=== PATIENT | female | born 1965 | race Caucasian/White ===

== ENCOUNTER 2021-11-11 05:33 | Outpatient (CLI) | payer MEDICARE ==
[~2021-11-11] VITALS: Ht 157.4 cm; Wt 165.0 kg
[2021-11-11] MEDS ORDERED: BUPR300T98 PO (13:38)
[2021-11-11] MEDS ORDERED: CETI10CA PO (13:38)
[2021-11-11] MEDS ORDERED: FURO40TA4 PO (13:38)
[2021-11-11] MEDS ORDERED: DAPA10TA PO (13:38)
[2021-11-11] MEDS ORDERED: RT-ALBUINH INH (13:38)
[2021-11-11] MEDS ORDERED: SITA100T12 PO (13:38)
[2021-11-11] MEDS ORDERED: METF-399 PO (13:38)
[2021-11-11] MEDS ORDERED: LEVO150C4 PO (13:38)
[2021-11-11] MEDS ORDERED: LISI5TAB20 PO (13:38)
[2021-11-11] MEDS ORDERED: GLIM4TAB5 PO (13:38)
[2021-11-11] MEDS ORDERED: ATOR80TA76 PO (13:38)
[2021-11-11] MEDS ORDERED: FLUT1BLS3 IH (13:51)
[2021-11-11] MEDS ORDERED: CITA20TA9 PO (13:51)
== END 2021-11-11 14:06 | disposition home or self-care (01) ==
LOC: PREOP 05:33
PROVIDERS: ATTEND Surgery
DX: Z01.818 Encounter for other preprocedural examination (principal)

== ENCOUNTER 2021-11-18 07:00 | Day surgery (SDC) | payer MEDICARE ==
[~2021-11-18] VITALS: Ht 157.4 cm; Wt 165.0 kg
[2021-11-18] VITALS (14 sets, daily range): BP systolic 101–156; BP diastolic 57–92
[~2021-11-18 07:00] MED LIST: ATOR80TA76 PO; BUPR300T98 PO; CETI10CA PO; CITA20TA9 PO; DAPA10TA PO; FLUT1BLS3 IH; FURO40TA4 PO; GLIM4TAB5 PO; LEVO150C4 PO; LISI5TAB20 PO; METF-399 PO; RT-ALBUINH INH; SITA100T12 PO
--- OUTSIDE RECORDS SUMMARY | 2021-11-18 07:02 | XMS REPORT | Clinical Summary ---
Author Author [facility] Organization [facility] Address Unknown Phone Unavailable Care Team Providers Care Supply Crib Attendant Name Role Phone Lore Corley RN Unavailable Unavailable Milena Loyola RN Unavailable Unavailable Tosha Acosta MD Unavailable Nixon Lozano MD Unavailable Marianna Mitchell Unavailable Unavailable Gabriel Isbell MD PCP Source Comments Some departments are not documenting in the electronic medical record. If you d o not see the information that you expected, contact Release of Information in [facility] Information Management department at [phone] for further assistan ce in locating additional records.[facility] Allergies Comments Active Allergy Reactions Severity Noted Date changed colors, passed out, and almost , per patient Aspirin SYNCOPE High 04/13/2011 Sulfamethoxazole-Trimetho ANAPHYLAXIS High 02/06/2016 prim changed colors, passed out, and almost , per patient Propoxyphene SYNCOPE High 04/13/2011 changed colors, passed out, and almost , per patient Meperidine SYNCOPE High 04/13/2011 changed colors, passed out, and almost , per patient Tolerates Keflex Penicillins SYNCOPE High 04/13/2011 changed colors, passed out, and almost , per patient Diazepam SYNCOPE High 09/20/2013 Medications End Date Status Medication Sig Dispensed Refills Start Date Active guaiFENesin LA (MUCINEX) Take 600 mg 0 600 mg tablet by mouth twice daily as needed. Active PROAIR HFA 90 INHALE TWO 9 g 0 08/09/ mcg/actuation inhaler PUFFS BY 8 MOUTH EVERY 6 HOURS NEEDED FOR WHEEZING Active buPROPion XL (WELLBUTRIN TAKE ONE 90 tablet 3 1 XL) 300 mg tablet TABLET BY 8 MOUTH ONCE DAILY IN THE MORNING Active citalopram (CELEXA) 20 mg TAKE ONE 90 tablet 3 tablet TABLET BY 8 MOUTH ONCE DAILY Additional Information Patient taking differently: 20 mg Oral AT BEDTIME DAILY, Reported on 09/21/2020 Active metFORMIN (GLUCOPHAGE) TAKE ONE 180 tablet 3 500 mg tablet TABLET BY 8 MOUTH TWICE DAILY WITH MEALS Additional Information Patient taking differently: 1,000 mg Oral TWICE DAILY WITH MEALS, Reported on 09/21/2020 Active furosemide (LASIX) 40 mg TAKE 1 TABLET 30 tablet 0 tablet BY MOUTH ONCE 9 DAILY Additional Information Patient taking differently: 40 mg Oral EVERY MORNING, Reported on 09/21/2020 Active nicotine(+) (NICOTROL) 10 Inhale one 168 each 3 mg inhaler puff by mouth 0 into the lungs as Needed. Puff by mouth as needed. May use 6-16 cartridges per day as needed for up to 6 months. Active cetirizine (ZYRTEC) 10 mg Take one 90 tablet 3 tabletIndications: tablet by 0 Mucopurulent chronic mouth every bronchitis (HCC), morning. Seasonal allergies Active SITagliptin (JANUVIA) 100 Take 100 mg 0 mg tab tablet by mouth daily. Active glimepiride (AMARYL) 4 mg Take 4 mg by 0 tablet mouth daily. Active atorvastatin (LIPITOR) 80 Take 1 tablet 0 mg tablet by mouth 0 every morning. Active levothyroxine (SYNTHROID) Take 1 tablet 0 137 mcg tablet by mouth 0 every morning. Active VICTOZA 2-LEROY 0.6 mg/0.1 Inject 1.2 mg 0 09/16 mL (18 mg/3 mL) injection under the 0 pen skin daily. Increase to 1.2 mg after 1 week at 0.6mg daily Active acetaminophen SR (TYLENOL Take one 30 tablet 0 8 HOUR) 650 mg tablet tablet by 0 mouth every 6 hours as needed for Pain. Active ibuprofen (MOTRIN) 600 mg Take one 30 tablet 0 tablet tablet by 0 mouth every 6 hours as needed for Pain. Take with food. Active amLODIPine (NORVASC) 5 mg Take 5 mg by 0 tablet mouth daily. Active oxyCODONE (ROXICODONE) 5 Take one-half 30 tablet 0 mg tablet tablet to one 1 tablet by mouth every 4 hours as needed Active nicotine (NICODERM CQ Apply one 28 patch 0 12/07 STEP 3) 7 mg/day patch to top 1 patchIndications: smoking of skin as cessation directed every 24 hours. Rotate patch location. Indications: stop smoking Active nicotine (NICODERM CQ Apply one 28 patch 0 12/07 STEP 2) 14 mg/day patch to top 1 patchIndications: smoking of skin as cessation directed every 24 hours. Rotate patch location. Indications: stop smoking Active nicotine (NICODERM CQ Apply one 28 patch 0 12/07 STEP 1) 21 mg/day patch to top 1 patchIndications: smoking of skin as cessation directed every 24 hours. Rotate patch location. Indications: stop smoking Active albuterol-ipratropium Inhale 3 mL 180 mL 11/06 (DUONEB) 0.5 mg-3 mg(2.5 solution by 2 mg base)/3 mL nebulizer nebulizer as solutionIndications: directed four Asthma-COPD overlap times daily. syndrome (HCC) Active gyqpeqogvv-vjsntdrv-viwoz Inhale two 3 each 3 terol (BREZTRI puffs by 2 AEROSPHERE) 160-9-4.8 mouth into mcg/actuation the lungs inhalerIndications: twice daily. Asthma-COPD overlap syndrome (HCC) 11/17/2021 Discontinued (Ineffective Th erapy) vkfqtdbefka-xrsvrjoae-yjr Inhale one 60 each 11 anter (TRELEGY ELLIPTA) puff by mouth 1 200-62.5-25 mcg into the inhalerIndications: lungs daily. Asthma-COPD overlap syndrome (HCC) Active Problems Problem Noted Date S/P hysterectomy 12/17/2020 Family history of premature CAD 11/09/2020 Tobacco abuse 11/09/2020 Last Assessment & Plan: Formatting of this note might be differ ent from the original. - continues to cut back smoking, now do wn to 5 cigarettes/day - not currently using NRT resources - encouraged to substitute her nicotrol inhaler for the 5 cigarettes/day to achieve complete cessation Type 2 diabetes mellitus 11/09/2020 Mixed hyperlipidemia 11/09/2020 Obesity due to excess calories 11/09/2020 Endometrial cancer 10/17/2020 Asthma-COPD overlap syndrome 08/18/2020 Overview: Formatting of this note might be differ ent from the original. PFT (07/2020) FVC 1.40L (45% pred) FEV1 1.07L (44% pred) FEV1/FVC 77 RV 2.03L (115% pred) DLCO 107% pred Inhaler Regimen Trelegy 200/62.5/25 Albuterol DuoNeb Vaccinations Influenza - annually Pneumococcal - 2016 Prevnar - due at 66yo Oxygen N/A Pulm Rehab Not yet referred Smoking 30 pack-years Quit 08/2020 LDCT screening Referred 05/17/21 L ast Assessment & Plan: Formatting of this note might be differ ent from the original. - recently switch to Trelegy per PCP of magno, which we will continue - stop Symbicort - Rx for Trelegy high dose provided - continue Albuterol PRN - reviewed benefits for low-dose lung c ancer screening, referral placed GLORIA (obstructive sleep apnea) 08/18/2020 Last Assessment & Plan: Formatting of this note might be differ ent from the original. - improved tolerance on set pressure of 17 cmH20, though now feels her machine has gone back to auto-titrating and waking her in the night. - will verify pressure settings with DM E and ensure she is on set pressure of 17 Seasonal allergies 08/18/2020 Overview: Formatting of this note might be differ ent from the original. Zyrtec L ast Assessment & Plan: Formatting of this note might be differ ent from the original. - denies any symptoms during winter - plan to resume antihistamine therapy in spring04/14/2011 Ribs, multiple fractures 04/13/2011 Encounters Care Team Description Date Type Specialty Eva Harrison APRN-NP Arrived 11/17/2021 Hospital Radiology Encounter Swetha Mireles APRN-NP Asthma-COPD overlap syndrome (HCC) (Prim nina Dx); GLORIA (obstructive sleep apnea) 11/17/2021 Office Visit Pulmonology Swetha Mireles APRN-NP Arrived 11/17/2021 Hospital Encounter 11/17/2021 Travel Swetha Mireles MASTER MACHINIST-Eva Rowland APRN-NATALIIA Encounter for screening for lung cancer (Primary Dx) 11/15/2021 Scheduled Cardiothoracic Surg [place] Telephone Eva Campos PA-C Moran, Allysa M, PA-C Endometrial cancer (HCC) (Primary Dx); Lower extremity edema; Tobacco use 09/09/2021 Office Visit Oncology 09/09/2021 Travel from Last 3 Months Immunizations Name Administration Dates Next Due Pneumococcal Vaccine 05/04/2016 (23-Abbie Adult) Tdap Vaccine 04/06/2016 Surgical History Surgery Date Site/Laterality Comments HX SECTION 11/06/1996 - 11/05/1997 URETER SURGERY 11/06/1974 - 11/05/1975 MOUTH SURGERY teeth removed HYSTEROSCOPY 09/23/2020 Cervix/N/A HYSTEROSCOPY DI LATION AND CURETTAGE performed by Edis Santamaria MD at [facility] OR Medical devices from this surgery are i n the Implants section. INTRAUTERINE DEVICE 09/23/2020 Cervix/N/A INSERTION INTRAUTERINE DEVICE performed by INSERTION Edis Santamaria MD at [facility] OR Medical devices from this surgery are i n the Implants section. HX HYSTERECTOMY HYSTERECTOMY 12/17/2020 Abdomen/Bilater ROBOT ASSISTED LAPAROSCOPIC TOTAL HYSTERECTOMY - al BILATERAL REMOVAL OF TUBES AND OVARIES, MINILAPAROTOMY performed by Keesha Christianson MD at [facility] OR COLONOSCOPY 03/25/2021 N/A COLONOSCOPY SETELA GNOSTIC WITH SPECIMEN COLLECTION BY BRUSHING/ WASHING - FLEXIBLE performed by Sierra Mayberry DO at [facility] COLONOSCOPY 03/25/2021 COLONOSCOPY WITH SN ARE REMOVAL TUMOR/ POLYP/ OTHER LESION performed by Sierra Mayberry DO at [facility] Medical History Medical History Date Comments Sleep apnea Obesity Muscle spasm Psychiatric illness Hypothyroid Anxiety disorder COPD (chronic obstructive pulmonary disease) (HCC) Depression Hypertension Hyperlipidemia Arthritis DM (diabetes mellitus) (HCC) Cancer of uterus (HCC) Colorectal cancer (HCC) Endometrial ca (HCC) GERD (gastroesophageal reflux disease) Eczema Family History Medical History Relation Name Comments Cancer Daughter Depression Daughter Mental Illness Daughter Diabetes Father Hearing Loss Father Heart Disease Father High Cholesterol Father Hypertension Father Thyroid Disease Half Sister COPD Maternal Grandfather Heart Attack Maternal Grandfather Heart Disease Maternal Grandfather Cancer Maternal Grandmother Depression Maternal Grandmother Cancer Mother Depression Mother Heart Attack Mother Heart Disease Mother High Cholesterol Mother Hypertension Mother Stroke Mother Vision Loss Mother Brain Tumor Paternal Grandmother Cancer-Breast Paternal Grandmother Cancer-Colon Neg Hx Cancer-Ovarian Neg Hx Cancer-Uterine Neg Hx Cervical Cancer Neg Hx DVT Neg Hx Pulmonary Embolism Neg Hx Relation Name Status Comments Daughter Father Half Sister Maternal Grandfather Maternal Grandmother Mother Paternal Grandmother Social History Date Tobacco Use Types Packs/Day Years Used Current Every Day Smoker Cigarettes 1 37 Smokeless Tobacco: Never Used Tobacco Cessation: Ready to Quit: Yes; C ounseling Given: Yes Comments: reports she starated smoking at age 19, average 1 pack a day. Has cut down recently. Comments Alcohol Use Standard Drinks/Week No 0 (1 standard drink = 0.6 o z pure alcohol) Sex Assigned at Date Recorded Female 09/15/2020 1:29 PM WRECKING MECHANIC Date Recorded COVID-19 Exposure Response 11/17/2021 9:31 AM WRECKING MECHANIC In the last month, have you been in contact with No / Unsure someone who was confirmed or suspected to have Coronavirus / COVID-19? Obstetrics History Term Pre Abrt (TAB) (SAB) (Ect) Mult Lvng Comments Grav Para 1 1 1 2 Date GA Total Labor Labor/2nd/3rd Weight Sex Delivery Anes PTL Sandra A1 A5 Name Clin Outcome SAB Last Filed Vital Signs Reading Time Taken Comments Vital Sign 111/38 11/17/2021 10:53 AM WRECKING MECHANIC Blood Pressure 83 11/17/2021 10:53 AM WRECKING MECHANIC Pulse 36.8 C (98.2 F) 09/09/2021 10:09 AM CDT Temperature 18 11/17/2021 10:53 AM WRECKING MECHANIC Respiratory Rate 92% 11/17/2021 10:53 AM WRECKING MECHANIC Oxygen Saturation - - Inhaled Oxygen Concentration 160.1 kg (353 lb) 11/17/2021 10:53 AM WRECKING MECHANIC Weight 157.5 cm (5' 2") 11/17/2021 10:53 AM WRECKING MECHANIC Height 64.56 11/17/2021 10:53 AM WRECKING MECHANIC Body Mass Index Plan of Treatment Health Maintenance Due Date Last Done Comments MEDICARE ANNUAL WELLNESS 1966 VISIT MICROALBUMIN 1966 HIV SCREENING 1981 DILATED EYE EXAM 1984 FOOT EXAM 1984 HEPATITIS C SCREENING 1984 PHYSICAL (COMPREHENSIVE) 1984 EXAM CERVICAL CANCER SCREENING 1987 SHINGLES RECOMBINANT 2016 VACCINE (1 of 2) BREAST CANCER SCREENING 01/19/2017 01/20/2016 HBA1C 06/07/2017 12/08/2016, 08/10/2016, 05/04/2016, Additional history exists INFLUENZA VACCINE 06/06/2021 DTAP/TDAP VACCINES (2 - 04/06/2026 04/06/2016 Td or Tdap) COLORECTAL CANCER 03/25/2031 03/25/2021, SCREENING 03/25/2021, 03/25/2021 LUNG CANCER SCREENING Completed 11/17/2021 Goals Goal Patient Associated Recent Progress Patient-Stat Aut hor Goal Type Problems ed? Recover from illness Hospital Yes Michael Perez RN Implants Device Identifier Shelf Expiration Date Model / Serial / L ot Implanted Type Area Manufactur er 02/24/2024 [id number] / [id number] / Dank N/A: Cervix Implanted: Qty: 1 on 09/23/2020 by Edis Santamaria MD at [facility] Procedures Comments Procedure Name Priority Date/Time Associated Diag nosis CT LUNG SCREENING Routine 11/17/2021 Personal his tory of 1:28 PM WRECKING MECHANIC tobacco use PFT COMPLETE PULM Routine 11/17/2021 Asthma-COPD overlap FUNCTION 9:59 AM WRECKING MECHANIC syndrome (HCC) from Last 3 Months Results * CT LUNG SCREENING (11/17/2021 1:28 PM WRECKING MECHANIC) Modality Anatomical Region Laterality Computed Tomography Chest Specimen Impressions [facility] RESULTS - 11/17/2021 2:17 PM WRECKING MECHANIC 1. Several tiny pulmonary nodules may be scars or granulomas. Attention on continued annual low-dose CT lung screening is recommended. 2. At least mild coronary artery calci fication. NAVIGATOR NOTES (check all that apply) [ ]There are no findings which require close attention. Continue yearly screening according to protocol. (Lung-Rads 1) [ ] There are non-urgent findings which are likely to be clinically significant, as described in impression number(s) . (Lung-Rads S) [ ] There are urgent findings which require attention as described in impression number(s) . (Lung-Rads S) [x] Lung nodule(s) present with follow-up low dose ct recommendations as described in impression number(s) 1. (Lung-Rads 2) [ ] Lung nodule(s) or mass(es) with diagnostic recommendations as described in impression number(s) . (Lung-Rads ) Finalized by Darren Dunahm M.D. on 11/17/2021 2:17 PM. Dictated by Darren Dunham M.D. on 11/17/2021 2:05 PM. Narrative [facility] RESULTS - 11/17/2021 2:17 PM WRECKING MECHANIC Low-dose CT chest without contrast Clinical History: Personal history of tobacco use. Initial screening. Technique: Multiple contiguous axial CT images were obtained through the chest without contrast according to the low-dose CT protocol. Note: The low dose non-contrast CT technique used in this study allows for adequate evaluation of the lungs, with significant reduction in radiation dose to the patient versus a standard CT chest. Evaluation of mediastinal, hilar, and other soft tissue and bony structures of the chest is limited. Comparison: April 18, 2011 Findings: There is no axillary, mediastinal or hilar lymphadenopathy. Mildly prominent bilateral axillary lymph nodes are noted, likely reactive. The heart size is normal without pericardial effusion. There is at least mild coronary artery calcification. 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 Fine detail in both lungs is limited due to patient body habitus. Scattered areas of scarring are noted. A tiny calcified granulomas again seen in the right upper lobe on series 3, image 123. There are several tiny pulmonary nodules measuring up to 0.3 cm which are not definitely seen on the prior study which could be due to the presence of atelectasis, or could be due to exam technique. These are seen in the left lung on series 3, image 71, as well as in the right lung on image 123 and 157, for example. There is no pleural effusion. Multiple old healed bilateral rib fracture deformities are noted. There is mild diffuse hepatic steatosis. Procedure Note Darren Dunham MD - 11/17/2021 Low-dose CT chest without contrast Clinical History: Personal history of tobacco use. Initial screening. Technique: Multiple contiguous axial CT images were obtained through the chest without contrast according to the low-dose CT protocol. Note: The low dose non-contrast CT technique used in this study allows for adequate evaluation of the lungs, with significant reduction in radiation dose to the patient versus a standard CT chest. Evaluation of mediastinal, hilar, and other soft tissue and bony structures of the chest is limited. Comparison: April 18, 2011 Findings: There is no axillary, mediastinal or hilar lymphadenopathy. Mildly prominent bilateral axillary lymph nodes are noted, likely reactive. The heart size is normal without pericardial effusion. There is at least mild coronary artery calcification. 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 Fine detail in both lungs is limited due to patient body habitus. Scattered areas of scarring are noted. A tiny calcified granulomas again seen in the right upper lobe on series 3, image 123. There are several tiny pulmonary nodules measuring up to 0.3 cm which are not definitely seen on the prior study which could be due to the presence of atelectasis, or could be due to exam technique. These are seen in the left lung on series 3, image 71, as well as in the right lung on image 123 and 157, for example. There is no pleural effusion. Multiple old healed bilateral rib fracture deformities are noted. There is mild diffuse hepatic steatosis. IMPRESSION 1. Several tiny pulmonary nodules may b e scars or granulomas. Attention on continued annual low-dose CT lung screening is recommended. 2. At least mild coronary artery calcif ication. NAVIGATOR NOTES (check all that apply) [ ]There are no findings which require close attention. Continue yearly screening according to protocol. (Lung-Rads 1) [ ] There are non-urgent findings which are likely to be clinically significant, as described in impression number(s) . (Lung-Rads S) [ ] There are urgent findings which require attention as described in impression number(s) . (Lung-Rads S) [x] Lung nodule(s) present with follow-up low dose ct recommendations as described in impression number(s) 1. (Lung-Rads 2) [ ] Lung nodule(s) or mass(es) with diagnostic recommendations as described in impression number(s) . (Lung-Rads ) Finalized by Darren Dunham M.D. on 11/17/2021 2:17 PM. Dictated by Darren Dunham M.D. on 11/17/2021 2:05 PM. Performing Organization Address City/State/ZIP Code P andrzej Number [facility] RESULTS * PFT COMPLETE PULM FUNCTION (11/17/2021 9:59 AM WRECKING MECHANIC) FVC-Pre 1.31 L [facility] PFT MAIN FVC-%Pred-pre 43 % [facility] MAIN FVC-Post 1.55 L [facility] MAIN FVC-%Pred-Post 51 % [facility] FEV1-Pre 0.97 L [facility] MAIN FEV1-%Pred-Pre 40 % [facility] MA[facility] FEV1-Post 1.26 L [facility] MA[facility] FEV1-%Pred-Post 52 % [facility] FEV1/FVC-Pre 74 % [facility] MAIN [id number] 69 % [facility] [id number] 0.73 L/sec [facility] MAIN [id number]-%Pred-P 30 % [facility] MAIN re [id number] 1.71 L/sec [facility] MAIN MUT2371-%Pred-P 72 % [facility] MAIN ost PEF-Post 178.6 L/min [facility] MAIN RVPleth-Pre 1.86 L [facility] PFT MAIN RVPleth-%Pred-P 105 % [facility]FT MAIN re TLCPleth-Pre 3.66 L [facility] PFT MAIN TLCPleth-%Pred- 78 % [facility]FT MAIN Pre DLCOunc-Pre 21.38 ml/min/mmHg [facility] PFT MAIN DLCOunc-%Pred-P 101 % [facility] PFT MAIN re DLCOunc-#SD 0.059 ml/min/mmHg [facility]FT MAIN DLVA-Pred 4.64 ml/min/mmHg/L [facility] PFT MAIN DLVA-Pre 6.86 ml/min/mmHg/L [facility] MAIN DLVA-%Pred-Pre 147 % [facility]FT MAIN DLVA-SD 0.80 ml/min/mmHg/L [facility]FT MAIN DLVA-LLN 3.04 ml/min/mmHg/L [facility]FT MAIN DLVA-ULN 6.24 ml/min/mmHg/L [facility] MAIN DLVA-#SD 2.774 ml/min/mmHg/L [facility]FT MAIN [id number] 52 % [facility] MAIN Specimen Narrative Performing Organization Address City/State/ZIP Code P andrzej Number [facility] PFT MAIN [address] [place], [place] [address] from Last 3 Months Insurance Type Payer Benefit Subscriber ID Effective Phone Address Plan / Dates Group ALISHA OKEEFE [id number] 2019-P [phone] [address] [place] [address] Medicaid [employer] [place] [employer] [id number] 2019 [address] [place] [id number] [id number] Advance Directives Patient Vehicle Assembly Inspector Explanation Type Date Recorded Advance 09/20/2013 7:24 AM Directive/DPOA Advance Directives 04/14/2011 12:00 AM and Living Will Date Inactivated Comments Code Status Date Activated 12/18/2020 12:23 PM Full Code 12/17/2020 8:22 PM Provider has discussed Code Status No, discussion no t w/Patient or Family? necessary based on Dx 04/19/2011 2:16 PM Full Code 04/13/2011 4:06 PM Provider has discussed Code Status Yes w/Patient or Family? Care Teams Start Date End Date Supply Crib Attendant Relationship Specialty 01/06/21 Gabriel Isbell MD PCP - General Family [address] [place], [place] [phone] 04/13/11 Lore Corley, STEVENSON Emergency Medicine 09/20/13 Milena Loyola RN 10/28/15 Tosha Acosta MD Family [address] [facility] [address] [place] [address] 03/16/16 Nixon Lozano MD Family [address] [place] [address] [id number] 06/08/16 Marianna Mitchell Psychologist
--- OUTSIDE RECORDS SUMMARY | 2021-11-18 07:03 | XMS REPORT | Clinical Summary ---
Author Author [facility] Organization [facility] Address Unknown Phone Unavailable Care Team Providers Care Food Services Coordinator Name Role Phone PCP Unavailable Source Comments [facility] (Labor and Delivery) documents do not appear in the [facility] Allergies Not on File Medications Please verify current medications with patient. Not on file Active Problems Not on file Social History Date Tobacco Use Types Packs/Day Years Used Never Assessed Sex Assigned at Date Recorded Not on file Last Filed Vital Signs Not on file Plan of Treatment Health Maintenance Due Date Last Done Comments CT Colonography 1966 Cervical Cancer Screening 1966 Colonoscopy 1966 Colorectal Cancer 1966 Screening DNA-based stool test 1966 (Cologuard) HPV/Cotest 1966 Mammogram 1966 Pap Smear 1966 Sigmoidoscopy 1966 gFOBT or FIT 1966 COVID-19 Vaccine (1) 1971 Influenza Vaccine (#1) 2021 Pneumococcal Vaccine: 65+ 2031 Years (1 of 1 - PPSV23) HPV Vaccine Aged Out No longer eligible based on patient's age to complete this topic Hepatitis A Vaccine Aged Out No longer eligible based on patient's age to complete this topic Hepatitis B Vaccine Aged Out No longer eligible based on patient's age to complete this topic Hib Vaccine Aged Out No longer eligible based on patient's age to complete this topic IPV Vaccine Aged Out No longer eligible based on patient's age to complete this topic Meningococcal Vaccine Aged Out No longer eligib le based on patient's age to (MCV4) complete this topic Pneumococcal Vaccine: Aged Out No longer eligib le based on patient's age to Pediatrics (0 to 5 Years) complete this topic and At-Risk Patients (6 to 64 Years) Rotavirus Vaccine Aged Out No longer eligible based on patient's age to complete this topic Results Not on filefrom Last 3 Months
--- OUTSIDE RECORDS SUMMARY | 2021-11-18 07:03 | XMS REPORT | Encounter Summary ---
Author Author [facility] Organization [facility] Address Unknown Phone Unavailable Care Team Providers Care Transportation Maintenance Specialist Name Role Phone Lore Corley RN Unavailable Unavailable Milena Loyola RN Unavailable Unavailable Tosha Acosta MD Unavailable Nixon Lozano MD Unavailable Marianna Mitchell Unavailable Unavailable Gabriel Isbell MD PCP Reason for Visit * Reason Comments New Patient * Consultation (Routine) - New Request Diagnoses / Procedures Referred By [facility] Diagnoses Tobacco abuse Swetha Mireles APRN-NP [address] Ortho/Med Pavilion Lvl [address] [place] [address] Cc - Ww Cl Exm[facility] R[facility] [place] [place] Oncology Referral ID Status Reason Start Date Expiration Visits Vi sits Date Requested Authorized [id number] New Request Specialty Services 05/17/2021 05/17/2022 1 1 Required Encounter Details Care Team Description Date Type Department Swetha Mireles APRN-NP [address] Ortho/[facility] Pavilion Lvl [address] [place] [phone] Eva Harrison APRN-NP [address] [address] Encounter for screening for lung cancer (Primary Dx) 11/15/2021 Scheduled Cardiothoracic Surg shameka: Telephone Eyad Jensen [facility] [address] [address] Level [address] [place] [address] Social History Date Tobacco Use Types Packs/Day Years Used Current Every Day Smoker Cigarettes 1 37 Smokeless Tobacco: Never Used Comments: reports she starated smoking a t age 19, average 1 pack a day. Has cut down recently. Comments Alcohol Use Standard Drinks/Week No 0 (1 standard drink = 0.6 o z pure alcohol) Sex Assigned at Date Recorded Female 09/15/2020 1:29 PM RETAIL SALES CLERK documented as of this encounter Functional Status Date of Assessment Functional Status Response 01/12/2021 Does the patient have a hearing impairment: No 01/12/2021 Does the patient have a visual impairment: Yes 01/12/2021 Does the patient have impaired ambulation: No 01/12/2021 Does the patient have an activity of daily living No (ADL) impairment: 01/12/2021 Does the patient have an instrumental activity of No daily living (IADL) impairment: Date of Assessment Cognitive Status Response 01/12/2021 Does the patient have a cognitive impairment: No documented as of this encounter Progress Notes * Eva Harrison APRN-COURT WORKER - 11/15/2021 2:30 PM RETAIL SALES CLERK Telephone Visit Counseling and Shared Decision Making Documentation for Screening for Lung Cance r with Low Dose Computed Tomography Obtained patient's verbal consent to treat them and their agreement to [facility] policy and NPP via this telehealth visit during the Coronavirus Public [facility] Emergency. Beneficiary eligibility criteria were verified to include: Age 55-77 years old-56 y.o. Symptoms- none Social History Tobacco Use Smoking Status Current Every Day Smoker Packs/day: 1.00 Years: 37.00 Pack years: 37.00 Types: Cigarettes Smokeless Tobacco Never Used Tobacco Comment reports she starated smoking at age 19, average 1 pack a day. Has cut down rec ently. NEW Prior CT chest 04/18/11 A discussion of the LDCT was provided to include: Benefits and harm of screening Follow-up diagnostic testing Over-diagnosis False positive rate Total radiation exposure Importance of adherence to annual lung cancer screening Smoking cessation or continued abstinence The patient meets criteria for a LDCT, questions were answered, and patient has agreed to proceed. The patient was furnished with a smoking cessation guide, as appropriate. Confirmed CT and results appointments. Medical History: Diagnosis Date Anxiety disorder Arthritis Cancer of uterus (HCC) Colorectal cancer (HCC) COPD (chronic obstructive pulmonary disease) (HCC) Depression DM (diabetes mellitus) (HCC) Eczema Endometrial ca (HCC) GERD (gastroesophageal reflux disease) Hyperlipidemia Hypertension Hypothyroid Muscle spasm Obesity Psychiatric illness Sleep apnea Plan: Scan scheduled: 11/17 Result apt scheduled: 11/24 PCP- Gabriel Flores Referring Provider (if not PCP)- YOSHI Ochoa Thoracic Surgery Lung Cancer Screening Program 10 minutes time spent on this encounter including review of chart, review of elena t results, communication and education, and documentation. [facility] documented in this encounter Plan of Treatment Order Schedule Name Type Priority Associated Diag noses Ordered: 05/17/2021 AMB REFERRAL FOR LUNG Outpatient Routine Tobacco abuse CANCER SCREENING Referral documented as of this encounter Goals Goal Patient Associated Recent Progress Patient-Stat Aut hor Goal Type Problems ed? Recover from illness Hospital Yes Michael Perez RN documented as of this encounter Visit Diagnoses Diagnosis Encounter for screening for lung cancer - Primary documented in this encounter Additional Health Concerns Noted Time Assessment 10/28/2015 2:00 PM RETAIL SALES CLERK PHQ-9 Depression Total Score: 27 09/09/2021 10:10 AM CDT A fall risk assessment has been complet ed for the patient 05/17/2021 7:42 AM CDT PHQ-2 Depression Total Score: 0 documented as of this encounter Care Teams Start Date End Date Transportation Maintenance Specialist Relationship Specialty 01/06/21 Gabriel Isbell MD PCP - General [facility] [address] [place] [address] 04/13/11 Lore Corley RN Emergency Medicine 09/20/13 Milena Loyola RN 10/28/15 Tosha Acosta MD Family 1999 [facility] Ortho/Med Pavilion Lvl 1 [place] [address] 03/16/16 Nixon Lozano MD Family [address] [place] [address] 06/08/16 Marianna Mitchell Psychologist documented as of this encounter
--- OUTSIDE RECORDS SUMMARY | 2021-11-18 07:03 | XMS REPORT | Encounter Summary ---
Author Author [facility] Organization [facility] Address Unknown Phone Unavailable Care Team Providers Care Move Coordinator Name Role Phone Lore Corley RN Unavailable Unavailable Milena Loyola RN Unavailable Unavailable Tosha Acosta MD Unavailable Nixon Lozano MD Unavailable Marianna Mitchell Unavailable Unavailable Gabriel Isbell MD PCP Encounter Details Care Team Description Date Type Department 11/17/2021 Travel Social History Date Tobacco Use Types Packs/Day Years Used Current Every Day Smoker Cigarettes 1 37 Smokeless Tobacco: Never Used Comments: reports she starated smoking a t age 19, average 1 pack a day. Has cut down recently. Comments Alcohol Use Standard Drinks/Week No 0 (1 standard drink = 0.6 o z pure alcohol) Sex Assigned at Date Recorded Female 09/15/2020 1:29 PM DRY HOUSE WHEELER Date Recorded COVID-19 Exposure Response 11/17/2021 9:31 AM DRY HOUSE WHEELER In the last month, have you been in contact with No / Unsure someone who was confirmed or suspected to have Coronavirus / COVID-19? documented as of this encounter Functional Status [...] impairment: No documented as of this encounter Plan of Treatment Not on filedocumented as of this encounter Goals Goal Patient Associated Recent Progress Patient-Stat Aut hor Goal Type Problems ed? Recover from illness Hospital Yes Michael Perez, RN documented as of this encounter Visit Diagnoses Not on filedocumented in this encounter Additional Health Concerns Noted Time Assessment 10/28/2015 2:00 PM DRY HOUSE WHEELER PHQ-9 Depression Total Score: 27 09/09/2021 10:10 AM CDT A fall risk assessment has been complet ed for the patient 05/17/2021 7:42 AM CDT PHQ-2 Depression Total Score: 0 documented as of this encounter Care Teams Start Date End Date Move Coordinator Relationship Specialty 01/06/21 Gabriel Isbell MD PCP - [facility] [address] [place] [address] 04/13/11 Lore Corley RN Emergency Medicine 09/20/13 Milena Loyola RN 10/28/15 Tosha Acosta MD [facility] 1999 [facility] Ortho/Med Pavilion Lv 1 [place] [address] 03/16/16 Nixon Lozano MD [facility] [address] [place] [address] 06/08/16 Marianna Mitchell Psychologist documented as of this encounter
--- OUTSIDE RECORDS SUMMARY | 2021-11-18 07:03 | XMS REPORT | Encounter Summary ---
Author Author [facility] Organization [facility] Address Unknown Phone Unavailable Care Team Providers Care Epoxy Fabrication Supervisor Name Role Phone Lore Corley RN Unavailable Unavailable Milena Loyola RN Unavailable Unavailable Tosha Acosta MD Unavailable Nixon Lozano MD Unavailable Marianna Mitchell Unavailable Unavailable Gabriel Isbell MD PCP Encounter Details Care Team Description Date Type Department Swetha Mireles, SENIOR ACCOUNTS PAYABLE CLERK-SMELTING ENGINEER 1999 [facility] Ortho/Med Pavilion Lvl [address] [place] [address] Arrived 11/17/2021 Hospital Pulmonary Function Lab: Encounter [address], [address] [place] [address] Social History Date Tobacco Use Types Packs/Day Years Used Current Every Day Smoker Cigarettes 1 37 Smokeless Tobacco: Never Used Comments: reports she starated smoking a t age 19, average 1 pack a day. Has cut down recently. Comments Alcohol Use Standard Drinks/Week No 0 (1 standard drink = 0.6 o z pure alcohol) Sex Assigned at Date Recorded Female 09/15/2020 1:29 PM MOLD MOVER Date Recorded COVID-19 Exposure Response 11/17/2021 9:31 AM MOLD MOVER In the last month, have you been [...] Perez RN documented as of this encounter Procedures Comments Procedure Name Priority Date/Time Associated Diag nosis PFT COMPLETE PULM Routine 11/17/2021 Asthma-COPD overlap FUNCTION 9:59 AM MOLD MOVER syndrome (HCC) documented in this encounter Results * PFT COMPLETE PULM FUNCTION (11/17/2021 9:59 AM MOLD MOVER) FVC-Pre 1.31 L [facility] FVC-%Pred-pre 43 % [facility] FVC-Post 1.55 L [facility] FVC-%Pred-Post 51 % [facility] FEV1-Pre 0.97 L [facility] FEV1-%Pred-Pre 40 % [facility] FEV1-Post 1.26 L [facility] FEV1-%Pred-Post 52 % [facility] FEV1/FVC-Pre 74 % [facility] [id number] 69 % [facility] [id number] 0.73 L/sec [facility] FBW8870-%Pred-P 30 % [facility] re [id number] 1.71 L/sec [facility] IYF8062-%Pred-P 72 % [facility] ost PEF-Post [...] MAIN DLVA-#SD 2.774 ml/min/mmHg/L [facility] [id number]-Vec 52 % [facility] Specimen Narrative Performing Organization Address City/State/ZIP Code P andrzej Number [facility] [address] [place], [place] [address] documented in this encounter Visit Diagnoses Diagnosis Asthma-COPD overlap syndrome (HCC) documented in this encounter Additional Health Concerns Noted Time Assessment 10/28/2015 2:00 PM MOLD MOVER PHQ-9 Depression Total Score: 27 09/09/2021 10:10 AM CDT A fall risk assessment has been complet ed for the patient 05/17/2021 7:42 AM CDT PHQ-2 Depression Total Score: 0 documented as of this encounter Care Teams Start Date End Date Epoxy Fabrication Supervisor Relationship Specialty 01/06/21 Gabriel Isbell MD PCP - General [facility] [address] [place] [address] 04/13/11 Lore Corley, RN Emergency Medicine 09/20/13 Milena Loyola RN 10/28/15 Tsoha Acosta MD [facility] 1999 [facility] Medicine Ortho/Med Pavilion Lvl 1 [place] [address] 03/16/16 Nixon Lozano MD [facility] [address] [place] [address] 06/08/16 Marianna Mitchell Psychologist documented as of this encounter
--- OUTSIDE RECORDS SUMMARY | 2021-11-18 07:03 | XMS REPORT | Encounter Summary ---
Author Author [facility] Organization [facility] Address Unknown Phone Unavailable Care Team Providers Care Nuclear Radiologist Name Role Phone Lore Corley RN Unavailable Unavailable Milena Loyola RN Unavailable Unavailable Tosha Acosta MD Unavailable Nixon Lozano MD Unavailable Marianna Mitchell Unavailable Unavailable Gabriel Isbell MD PCP Reason for Referral * Radiology Services (Routine) - Authorized Diagnoses / Procedures Referred By [facility] Diagnoses Personal history of tobacco use Procedures CT LUNG SCREENING Eva Harrison APRN-NP [address] [address] [facility] [address] [facility] [address] [place] [address] Radiology Referral ID Status Reason Start Date Expiration Visits Vi sits Date Requested Authorized [id number] Authorized 06/10/2021 12/11/[address] Reason for Visit * Radiology Services (Routine) - Authorized Diagnoses / Procedures Referred By [facility] Diagnoses Personal history of tobacco use Procedures CT LUNG SCREENING Eva Harrison APRN-NP [address] [place] [address] [place] [address] Radiology Referral ID Status Reason Start Date Expiration Visits Vi sits Date Requested Authorized [id number] Authorized 06/10/2021 12/11/2022 1 1 Encounter Details Care Team Description Date Type Department Eva Harrison APRN-CONDUCTOR PULLMAN 4000 [facility] [place] [address] Arrived 11/17/2021 Hospital Imaging, CT: Main C ampus, Encounter Medical Pavilion [address] [place] [address], [address] [place] [address] Social History Date Tobacco Use [...] at Date Recorded Female 09/15/2020 1:[address] JUDGE Date Recorded COVID-19 Exposure Response 11/17/2021 9:[address] JUDGE In the last month, have you been [...] 11/17/2021 Personal his tory of 1:[address] JUDGE tobacco use documented in this encounter Results * CT LUNG SCREENING (11/17/2021 1:[address] JUDGE) Modality Anatomical Region Laterality Computed Tomography Chest Specimen Impressions [facility] RESULTS - 11/17/2021 2:[address] JUDGE 1. Several tiny pulmonary nodules may be [...] [facility] RESULTS - 11/17/2021 2:[address] JUDGE Low-dose CT chest without contrast Clinical History: [...] PM. Performing Organization Address City/State/ZIP Code P anrdzej Number [facility] RESULTS documented in this encounter Visit Diagnoses Diagnosis Personal history of tobacco use Personal history of tobacco use, presen ting hazards to health documented in this encounter Additional Health Concerns Noted Time Assessment 10/28/2015 2:[address] JUDGE PHQ-9 Depression Total Score: 27 09/09/2021 10:10 AM CDT A fall risk assessment has been complet ed for the patient 05/17/2021 7:42 AM CDT PHQ-2 Depression Total Score: 0 documented as of this encounter Care Teams Start Date End Date Nuclear Radiologist Relationship Specialty 01/06/21 Gabriel Isbell MD PCP - [facility] [address] [place] [address] 04/13/11 Lore Corley, STEVENSON Emergency Medicine 09/20/13 Milena Loyola RN 10/28/15 Tosha Acosta MD [facility] 1999 [facility] Medicine Ortho/Med Pavilion Lvl 1 [place] [address] 03/16/16 Nixon Lozano MD Family [address] [place] [address] [place] [address] 06/08/16 Marianna Mitchell Psychologist documented as of this encounter
--- OUTSIDE RECORDS SUMMARY | 2021-11-18 07:03 | XMS REPORT | Encounter Summary ---
Author Author [facility] Organization [facility] Address Unknown Phone Unavailable Care Team Providers Care Entertainment Centre Manager Name Role Phone Lore Corley RN Unavailable Unavailable Milena Loyola RN Unavailable Unavailable Tosha Acosta MD Unavailable Nixon Lozano MD Unavailable Marianna Mitchell Unavailable Unavailable Gabriel Isbell MD PCP Reason for Referral * Consult, Test & Treat (Routine) - New Request Diagnoses / Procedures Referred By Contact Referred To Conta ct Specialty Diagnoses GLORIA (obstructive sleep apnea) Procedures SLEEP STUDY Swetha Mireles APRN-NP [address] Ortho/Med Pavilion Lvl [address] [place] [address] Referral ID Status Reason Start Date Expiration Visits Vi sits Date Requested Authorized [id number] New Request 11/17/2021 11/17/2022 1 1 FILLER Reason for Visit * Reason Comments Asthma Copd Encounter Details Care Team Description Date Type Department Swetha Mireles APRN-NP [address] Ortho/Med Pavilion Lvl [address] [place] [phone] Asthma-COPD overlap syndrome (HCC) (Prim nina Dx); GLORIA (obstructive sleep apnea) 11/17/2021 Office Visit Pulmonology: Main C ampus, Medical Pavilion [address], [address] [place] [address] Social History Date Tobacco Use Types Packs/Day Years Used Current Every Day Smoker Cigarettes 1 37 Smokeless Tobacco: Never Used Tobacco Cessation: Ready to Quit: Yes; Shaq serra Given: Yes Comments: reports she starated smoking at age 19, average 1 pack a day. Has cut down recently. Comments Alcohol Use Standard Drinks/Week No 0 (1 standard drink = 0.6 o z pure alcohol) Sex Assigned at Date Recorded Female 09/15/2020 1:29 PM RAIL FILLER Date Recorded COVID-19 Exposure Response 11/17/2021 9:31 AM RAIL FILLER In the last month, have you been in contact with No / Unsure someone who was confirmed or suspected to have Coronavirus / COVID-19? documented as of this encounter Last Filed Vital Signs Reading Time Taken Comments Vital Sign 111/38 11/17/2021 10:53 AM RAIL FILLER Blood Pressure 83 11/17/2021 10:53 AM RAIL FILLER Pulse - - Temperature 18 11/17/2021 10:53 AM RAIL FILLER Respiratory Rate 92% 11/17/2021 10:53 AM RAIL FILLER Oxygen Saturation - - Inhaled Oxygen Concentration 160.1 kg (353 lb) 11/17/2021 10:53 AM RAIL FILLER Weight 157.5 cm (5' 2") 11/17/2021 10:53 AM RAIL FILLER Height 64.56 11/17/2021 10:53 AM RAIL FILLER Body Mass Index documented in this encounter Functional Status Date of Assessment [...] impairment: No documented as of this encounter Ordered Prescriptions Start Date End Date Prescription Sig Dispensed Refills 11/17/2021 [id number] Inhale two 3 each 3 terol (BREZTRI puffs by Xsilon) 160-9-4.8 mouth into mcg/actuation the lungs inhalerIndications: twice daily. Asthma-COPD overlap syndrome (HCC) 11/17/2021 albuterol-ipratropium Inhale 3 mL 180 mL 11 (DUONEB) 0.5 mg-3 mg(2.5 solution by mg base)/3 mL nebulizer nebulizer as solutionIndications: directed four Asthma-COPD overlap times daily. syndrome (HCC) documented in this encounter Miscellaneous Notes * Patient Instructions - Joy Jung RN - 11/17/2021 11:00 AM RAIL FILLER Clinic Visit Summary: Please contact Pulmonary Nurse Coordinator with signs and symptoms of worsening productive cough with thick secretions, blood in sputum, chest tightness/pain, s hortness of breath, fever, chills, night sweats, or any questions or concerns. Pulmonary RN Coordinator-Joy Jung RN T)[phone] F)[phone] For refills on medications, please have your pharmacy fax a refill authorization request form to our office at Fax) [phone]. Please allow at least 3 busine ss days for refill requests. For urgent issues after business hours/weekends/holidays call [phone] and r rommelest for the base draw operator to be paged FILLER documented in this encounter Plan of Treatment Order Schedule Name Type Priority Associated Diag noses Expected: 12/18/2021 (Approximate), Expi res: 11/17/2022 SLEEP STUDY Procedures Routine GLORIA (obstructiv e sleep apnea) documented as of this encounter Goals Goal Patient Associated Recent Progress Patient-Stat Aut hor Goal Type Problems ed? Recover from illness Hospital Yes Michael Perez RN documented as of this encounter Visit Diagnoses Diagnosis Asthma-COPD overlap syndrome (HCC) - Pr imary GLORIA (obstructive sleep apnea) Obstructive sleep apnea (adult) (pediat dorita) documented in this encounter Discontinued Medications Start Date End Date Medication Sig Discontinue Reason 05/17/2021 11/17/2021 owewldqrajv-hmhujmwro-jtr Inhale one Ineffective anter (TRELEGY ELLIPTA) puff by Therapy 200-62.5-25 mcg mouth into inhalerIndications: the lungs Asthma-COPD overlap daily. syndrome (HCC) documented as of this encounter Additional Health Concerns Noted Time Assessment 10/28/2015 2:00 PM RAIL FILLER PHQ-9 Depression Total Score: 27 09/09/2021 10:10 AM CDT A fall risk assessment has been complet ed for the patient 05/17/2021 7:42 AM CDT PHQ-2 Depression Total Score: 0 documented as of this encounter Care Teams Start Date End Date Entertainment Centre Manager Relationship Specialty 01/06/21 Gabriel Isbell MD PCP - General [facility] [address] [place] [address] 04/13/11 Lore Corley, STEVENSON Emergency Medicine 09/20/13 Milena Loyola, STEVENSON 10/28/15 Tosha Acosta MD [facility] 1999 [facility] Ortho/Med Pavilion Lvl 1 [place] [address] 03/16/16 Nixon Lozano MD [facility] [address] [place] [address] 06/08/16 Marianna Mitchell Psychologist documented as of this encounter
[2021-11-18] MEDS ORDERED: LIDOCAINE/EPI 1%-1:200,000 (XYLOCAINE) 30 ML VIAL ONE (07:12)
[2021-11-18] MEDS ORDERED: CLINDAMYCIN 600 MG/50 ML IVPB 50 ML IV ONE (07:15)
[2021-11-18] MEDS: LACTATED RINGERS 1,000 ML IV PRN ×2 (07:40→09:44)
--- NOTE | 2021-11-18 07:51 | Progress Note-Pre Operative ---
Pre-Operative Progress Note H&P Reviewed The H&P was reviewed, patient examined and no changes noted. Date Seen by Provider: Nov 18, 2021 Time Seen by Provider: 07:50 Date H&P Reviewed: Nov 18, 2021 Time H&P Reviewed: 07:50 Pre-Operative Diagnosis: CHOLELITHIASIS, EPIGASTRIC ABDOMINAL PAIN LULI JONES DO Nov 18, 2021 07:51
[2021-11-18] MEDS ORDERED: LIDOCAINE PF 2% 5 ML (XYLOCAINE) VIAL ONE (08:30)
[2021-11-18] MEDS ORDERED: ONDANSETRON 4 MG/2 ML (SDV) Z0FRAN ONE (08:30)
[2021-11-18] MEDS ORDERED: GLYCOPYRROLATE 0.2 MG/ML (ROBINUL) 2 ML VIAL ONE (08:30)
[2021-11-18] MEDS ORDERED: NEOSTIGMINE 3 MG/3 ML VIAL ONE (08:30)
[2021-11-18] MEDS ORDERED: proPOfol 200 MG/20 ML (DIPRIVAN) VIAL IV ONE (08:30)
[2021-11-18] MEDS ORDERED: fentaNYL INJ 100 MCG/2 ML AMP ONE (08:30)
[2021-11-18] MEDS ORDERED: MIDAZOLAM 2 MG/2 ML (VERSED) VIAL ONE (08:30)
[2021-11-18] MEDS ORDERED: ROCURONIUM 50 MG/5 ML (ZEMURON) VIAL IV ONE ×2 (08:31→09:20)
[2021-11-18] MEDS ORDERED: PHENYLEPHRINE 100 MCG/ML 10 ML (ANESTHESIA) SYR ONE (08:56)
[2021-11-18] MEDS ORDERED: IOHEXOL 300 MG/ML 30 ML (OMNIPAQUE 300) VIAL INJ ONE (09:45)
[2021-11-18] MEDS ORDERED: SEVOFLURANE (ULTANE) 15 ML INHAL SOLN ONE (09:53)
--- NOTE | 2021-11-18 10:03 | Progress Note-Post Operative ---
Post-Operative Progess Note Surgeon (s)/Sand Mixer (s) Surgeon LULI JONES DO Sand Mixer: Dr. Coffman to assist in retraction dissection and closure. Pre-Operative Diagnosis CHOLELITHIASIS, EPIGASTRIC ABDOMINAL PAIN Post-Operative Diagnosis same Procedure & Operative Findings Date of Procedure 11/18/21 Procedure Performed/Findings PROCEDURE: Laparoscopic cholecystectomy with intraoperative cholangiogram. COMPLICATIONS: None. PROCEDURE: The patient was taken to the operating suite and was prepped and draped in sterile fashion. A surgical pause was performed. Just superior to the umbilicus, a 12 mm incision was made. Dissection was taken down to the fascia, which was then scored and grasped with a Sola and the abdomen was then entered. A 0 Vicryl suture was placed in a zmognt-ci-hrmrk fashion and a Trujillo trocar was placed and secured. Pneumoperitoneum was achieved. A 5mm trochar place in the subxyphoid and 2 in the right upper quadrant. The gallbladder was then grasped and elevated. Could not get good visualization of the neck of the gallbladder, so a [address] in right lower quadrant and a fan retractor inserted to obtain adequate visualization. The cystic duct, and cystic artery were then dissected out. Clip was placed on the distal portion of the cystic duct which was then partially transected. An arrow catheter was inserted into the duct. The cholangiogram was then performed. No filing defects and contrast made its way into the duodenum. Catheter removed. Clips were placed on proximal portion of the cystic duct and then the duct was then transected. Clips were placed along the proximal and distal portion of the cystic artery which was then transected. Hook cautery was used to dissect the gallbladder from the gallbladder fossa achieving hemostasis. The gallbladder was placed in an Endobag and removed through the 12 mm trocar site. The abdomen was then reinspected. Copious amounts of irrigation were used to irrigate the abdomen and there were no signs of active bleeding. Hemostasis had been achieved. The 12 mm fascial defect was then closed with 0 Vicryl suture that had been placed in a oyagco-aq-cdjvj fashion. The abdomen was then desufflated, the trocars were removed. The abdomen was then washed and dried. The skin was then closed using 4-0 Monocryl in a subcuticular fashion. The abdomen was washed and dried and Skin Affix was place over incisions. Patient tolerated the procedure well without any complications and was taken to the recovery room in stable condition. Anesthesia Type general Estimated Blood Loss Estimated blood loss (mL): minimal Specimens/Packing Specimens Removed gallbladder LULI JONES DO Nov 18, 2021 10:03
[2021-11-18] MEDS ORDERED: DOCU-143 PO (10:04)
[2021-11-18] MEDS ORDERED: ACHD5005 PO (10:04)
--- NOTE | 2021-11-18 10:05 | Discharge Inst-Simple/Standard ---
Discharge Inst-Standard Discharge Medications New, Converted or Re-Newed RX: Transmitted to Pharmacy Patient Instructions/Follow Up Plan of Care/Instructions/FU: 2-3 weeks Henri Activity as Tolerated: No Discharge Diet: Regular Diet Other Inst to Patient Follow up Appt: Make appointment for 2-3 weeks. Instructions: No lifting greater than 10 pounds. No strenuous activity. May shower in 24 hours, no tub bath or soaking. Use incentive spirometer at home as directed. No Smoking Skin/Wound Care: You have special glue over incision, it will fall off on it's own. Symptoms to Report: Appetite Changes, Extremity Discoloration, Numbness/Tingling, Swelling Increased, Bleeding Excessive, Eyesight Changes, Pain Increased, Urine Color Change, Constipation(Persistent), Fever over 101 degree F, Pain/Pressure in chest, Urinating Difficulty, Cough Up/Vomit Blood, Heart Beat Irreg/Pounding, Pain/Pressure in jaw, Vaginal Bleeding Increase, Cramps in feet or legs, Lightheadedness, Pain/Pressure in shoulder, Diarrhea(Persistent), Memory Changes Suddenly, Questions/Concerns, Weight gain consecutive days, Dizziness/Fainting, Nausea/Vomiting, Shortness of Breath, Weight gain over 2 pounds. If eyes or skin turn yellow notify physician. If questions or concerns contact your physician Or seek help at emergency department. LULI JONES DO Nov 18, 2021 10:05
--- NOTE | 2021-11-18 10:25 | Diagnostic Imaging Report ---
INDICATION: Fluoroscopy during intraoperative cholangiogram. Fluoroscopy was provided in the OR during intraoperative cholangiogram. Nine seconds of fluoroscopic time was utilized. Forty images were obtained. Images demonstrate contrast being injected via the cystic duct remnant. There is opacification of intrahepatic and extrahepatic bile ducts. Contrast does flow into the duodenum. No filling defects are seen to suggest retained stone. IMPRESSION: Fluoroscopy during intraoperative cholangiogram. Dictated by: Dictated on workstation # [id number]
[2021-11-18] MEDS ORDERED: KETAMINE 50 MG/5 ML SYRINGE ONE (10:29)
[2021-11-18] MEDS ORDERED: RT-ALBUTEROL SULF 2.5 MG/3 ML PRE-MIX VIAL ONE (10:33)
[2021-11-18] MEDS ORDERED: morphine INJ 10 MG/ML 1ML (SYR OR VIAL) IVP ONE (11:15)
[2021-11-18] MEDS ORDERED: RT-ALBUTEROL SULF 2.5 MG/3 ML PRE-MIX VIAL INH ONE ×2 (11:15→15:00)
[2021-11-18] MEDS ORDERED: ONDANSETRON 4 MG/2 ML (SDV) Z0FRAN IVP PRN (11:15)
[2021-11-18] MEDS ORDERED: EPINEPHrine INJECTION 1 MG/ML AMP ONE (11:27)
[2021-11-18] MEDS ORDERED: SUCCINYLCHOLINE INJ 100 MG/5 ML SYR/VIAL ONE (15:00)
[2021-11-18] MEDS ORDERED: SUGAMMADEX 500 MG/5 ML VIAL (BRIDION) IV ONE (15:02)
--- NOTE | 2021-11-18 15:51 | Anesthesia-General Post-Op ---
General Patient Condition Mental Status/LOC: Same as Preop Cardiovascular: Satisfactory Nausea/Vomiting: Absent Respiratory: Unsatisfactory Pain: Controlled Complications: Present (Postop laryngospasm ) Post Op Complications Complications None Follow Up Care/Instructions Patient Instructions None needed. Anesthesia/Patient Condition Patient Condition Patient is wishing to leave AMA now. She had a postop laryngospasm requiring reintubation in the OR. She was extubated in PACU and put on BiPAP. She transitioned to a simple O2 mask and was moved to [facility] [place]. After several hours she was titrated down to 2 L/min via mask and SaO2 was 90-91%. Any trial on RA resulted in SaO2 of ~85%. Another albuterol nebulizer treatment was given and SaO2 was still 82-84%. I told her she would do best to stay as an observation status with supplemental oxygen. She was adamant that she needed to go home and had albuterol and her CPAP machine and she would do fine. I again told her that I thought she needed to stay here overnight and she declined. I spoke with her daughter and she decided to sign the AMA papers with the patient so they could be discharged to home. GRETCHEN WALLIS DO Nov 18, 2021 15:51
--- NOTE | 2021-11-19 14:33 | Anesthesia-General Post-Op ---
General Patient Condition Mental Status/LOC: Same as Preop Cardiovascular: Satisfactory Nausea/Vomiting: Absent Respiratory: Satisfactory Pain: Controlled Complications: Absent Post Op Complications Complications None Follow Up Care/Instructions Patient Instructions None needed. Anesthesia/Patient Condition Patient Condition I spoke with the patient via telephone this am. She stated that she was back to her baseline respiratory status, no nausea and her pain was under control and she was doing well. GRETCHEN WALLIS DO Nov 19, 2021 14:33
== END 2021-11-18 16:30 | disposition left against medical advice (07) ==
LOC: SDC 07:00
PROVIDERS: ATTEND Surgery
DX: K80.10 Calculus of gallbladder with chronic cholecystitis without obstruction (principal); E11.9 Type 2 diabetes mellitus without complications; J44.9 Chronic obstructive pulmonary disease, unspecified; F17.210 Nicotine dependence, cigarettes, uncomplicated; F32.A Depression, unspecified; F41.9 Anxiety disorder, unspecified; F43.10 Post-traumatic stress disorder, unspecified; E66.01 Morbid (severe) obesity due to excess calories; Z68.44 Body mass index [BMI] 60.0-69.9, adult; J38.5 Laryngeal spasm; Z85.42 Personal history of malignant neoplasm of other parts of uterus; Z79.84 Long term (current) use of oral hypoglycemic drugs; Z79.899 Other long term (current) drug therapy
CPT/HCPCS: 76000; 82947; 87081; 88304; 94640